=== PATIENT | female | born 1945 | race Caucasian/White ===

== ENCOUNTER 2018-12-20 06:51 | Inpatient (IN) ==
[2018-12-14 12:11] LABS: Appearance,Urine CLEAR; Bilirubin,Urine NEG (NEG); Color,Urine YELLOW; Glucose,Urine (UA) NORM (NEG); Leukocyte Esterase,Urine NEG /uL (NEG); Protein,Urine NEG (NEG); Specific Gravity,Urine 1.025 (1.000-1.035); Urine Blood NEG mg/dL (<0.03); Urobilinogen,Urine NORM (NEG)
[2018-12-14 12:21] LABS: Basophils # (Auto) 0 K/mcL (0.0-0.3); Basophils % (Auto) 0.4 % (0.0-2.0); Eosinophils # (Auto) 0.1 K/mcL (0.0-0.7); Eosinophils % (Auto) 1.4 % (0.0-7.0); Granulocytes % (Auto) 64.3 % (38.0-78.0); Lymphocytes # (Auto) 2.2 K/mcL (1.5-4.8); Lymphocytes % (Auto) 27.5 % (15.5-49.0); Mean Cell Volume 91.3 fL (80.0-100.0); Mean Corpuscular HGB Conc 32.6 g/dL (31.0-36.0); Monocytes # (Auto) 0.5 K/mcL (0.1-0.9); Monocytes % (Auto) 6.4 % (1.0-12.0); Platelet Count 226 K/mcL (140-440); RBC 4.89 M/mcL (4.00-5.20); Red Cell Distribution Width 13.2 % (11.5-14.5)
[2018-12-14 12:33] LABS: Blood Urea Nitrogen 12 mg/dl (8-23)
[2018-12-14 12:36] LABS: Estimated Average Glucose(eAG) 154 mg/dL
[~2018-12-20 06:51] MED LIST: SCOPOLAMINE 1 PATCH PATCH TOPICAL ONE
[2018-12-20] MEDS ORDERED: PREGABALIN 75 MG CAPSULE PO SCH (07:00)
[2018-12-20] MEDS ORDERED: ceFAZolin 1 GM VIAL IV SCH (07:00)
[2018-12-20] MEDS ORDERED: 0.9 % SODIUM CHLORIDE 9 ML, KETOROLAC 30 MG, ROPIVACAINE HCL/PF 49.5 ML, EPINEPHrine 0.... IJ SCH (07:00)
[2018-12-20] MEDS ORDERED: ACETAMINOPHEN 500 MG TABLET PO SCH (07:00)
[2018-12-20] MEDS: oxyCODONE 10 MG TAB.ER.12H PO SCH ×2 (07:43→08:18)
[2018-12-20] MEDS ORDERED: GENTAMICIN SULFATE 800 MG/20 ML VIAL IR ONE (08:09)
[2018-12-20] MEDS ORDERED: PROPOFOL 200 MG/20 ML VIAL IV ONE (09:00)
[2018-12-20] MEDS ORDERED: TRANEXAMIC ACID 1,000 MG/10 ML VIAL IV ONE ×2 (09:00→10:23)
[2018-12-20] MEDS ORDERED: DEXAMETHASONE 10 MG/ML VIAL IV ONE (09:00)
[2018-12-20] MEDS ORDERED: ROPIVACAINE HCL/PF 20 ML VIAL IJ ONE (09:00)
[2018-12-20] MEDS ORDERED: ONDANSETRON 4 MG/2 ML VIAL IV ONE (09:00)
[2018-12-20] MEDS ORDERED: LIDOCAINE HCL/PF 100 MG/5 ML SYRINGE IV ONE (09:00)
[2018-12-20] MEDS ORDERED: MIDAZOLAM 5 MG/5 ML VIAL IV ONE (09:00)
[2018-12-20] MEDS ORDERED: GLYCOPYRROLATE 0.2 MG/ML VIAL IV ONE (09:00)
[2018-12-20] MEDS ORDERED: FLUMAZENIL 0.1 MG/ML ML IV PRN (09:49)
[2018-12-20] MEDS ORDERED: HYDROmorphone 2 MG/ML VIAL IV PRN (09:49)
[2018-12-20] MEDS ORDERED: ePHEDrine 50 MG/ML AMPUL IV PRN (09:49)
[2018-12-20] MEDS ORDERED: METOPROLOL TARTRATE 5 MG/5 ML VIAL IV PRN (09:49)
[2018-12-20] MEDS ORDERED: PROMETHAZINE 25 MG/ML VIAL IV PRN (09:49)
[2018-12-20] MEDS ORDERED: ONDANSETRON 4 MG/2 ML VIAL IV PRN (09:49)
[2018-12-20] MEDS ORDERED: IPRATROPIUM/ALBUTEROL 3 ML AMPUL.NEB NEB PRN (09:49)
[2018-12-20] MEDS ORDERED: NALOXONE HCL 0.4 MG/ML VIAL IV PRN (09:49)
[2018-12-20] MEDS ORDERED: METHOCARBAMOL 1,000 MG/10 ML VIAL IV PRN (09:49)
[2018-12-20] MEDS ORDERED: ATROPINE SULFATE 0.4 MG/ML VIAL IV PRN (09:49)
[2018-12-20] MEDS ORDERED: LACTATED RINGERS 1,000 ML IV SCH (10:00)
[2018-12-20] MEDS ORDERED: POLYETHYLENE GLYCOL 3350 17 GM PACKET PO PRN (10:23)
[2018-12-20] MEDS ORDERED: BENZOCAINE/MENTHOL 1 LOZENGE PO PRN (10:23)
[2018-12-20] MEDS ORDERED: HYDROcodone/APAP 10/325MG TABLET PO PRN (10:23)
[2018-12-20] MEDS ORDERED: FLEETS ADULT ENEMA PR PRN (10:23)
[2018-12-20] MEDS ORDERED: BISACODYL 10 MG SUPP.RECT PR PRN (10:23)
[2018-12-20] MEDS ORDERED: MAGNESIUM HYDROXIDE 30 ML ORAL.SUSP PO PRN (10:23)
[2018-12-20] MEDS ORDERED: TEMAZEPAM 15 MG CAPSULE PO PRN (10:23)
--- NOTE | 2018-12-20 10:31 | Brief Operative Note ---
Date of procedure: 12/20/18 Pre-op diagnosis: right knee djd severe Post-op diagnosis: same Procedure: right robotic tka Grafts/Implants: Yes Anesthesia: GETA Complications: none Surgeon: Berhane Wilburn [employer] Manager: Uday Ventura Estimated blood loss (cc): 20 Tourniquet Time (Minutes): 50 Specimens Removed/Pathology: none sent Condition: stable Disposition: PACU
[2018-12-20] MEDS: fentaNYL 100 MCG/2 ML VIAL IV PRN ×3 (10:58→11:06)
--- NOTE | 2018-12-20 10:59 | Operative Note ---
DATE OF OPERATION: 12/20/2018 PREOPERATIVE DIAGNOSIS: Right knee degenerative arthritis, severe. POSTOPERATIVE DIAGNOSIS: Right knee degenerative arthritis, severe. PROCEDURE: Right robotic total knee arthroplasty. SURGEON: Berhane Wilburn M.D. RENDERER: Francisco Ventura PA-C. ANESTHESIA: General LMA anesthesia. TOURNIQUET TIME: 50 minutes. COMPLICATIONS: None. ESTIMATED BLOOD LOSS: About 20 mL. DESCRIPTION OF PROCEDURE: The patient was brought to the operating room and put to sleep with general LMA anesthesia. After being put to sleep with general LMA anesthesia, a timeout was performed. We confirmed the site as the right knee by consent form, x-rays, and initials on the skin. Once all this was accomplished, we made a midline incision through the [place]. A midvastus approach to the knee was performed. Severe arthritis throughout the knee was identified. With this, we proceeded with a total knee arthroplasty. Two pins above and below the knee were positioned, and the arrays were attached. We registered the center of hip rotation. Medial and lateral malleoli pins inside the femur and tibia were placed, and these were registered. We registered the robot and then balanced the knee, both at 90 and 15 degrees. Once perfectly balanced back to 0 degrees of varus valgus and 0 degrees extension, we then brought the robot in, made the bony cuts, and checked our alignment and tension. A 10 mm poly was best fit. The bony fragments had been removed. Osteophytes removed. We prepared the patella. It was measuring approximately 24 mm in total thickness. This was cut to 14 mm and then placed a 33 mm patellar button. All these components were cemented. We did place a 50 mm addition to the stem because the bone quality was very poor. The patient tolerated this well. We irrigated thoroughly after cementing the components. We let the knee dry at 45 degrees. Once dry, we then took the knee through range of motion to check that there was no debris or loose bodies within the joint. Once we thoroughly irrigated once more, we then closed the midvastus approach with #1 Stratafix. The tourniquet was deflated at 50 minutes. The tourniquet pressure was at 250 pounds of pressure only. Two Stratafix sutures closed the midvastus approach, 2-0 Vicryl and brijesh placed on the skin. The patient tolerated this well without complication. Sterile bandage was applied. [email or web address] Job ID: [id number] Doc ID: [id number] Berhane Wilburn MD
--- NOTE | 2018-12-20 11:19 | XRay Report ---
CLINICAL INFORMATION: Postsurgical follow-up TECHNIQUE: AP and crosstable lateral right knee COMPARISON: None. FINDINGS: Status post right total knee arthroplasty. Femoral and tibial components are in anatomic positions. Postsurgical soft tissue and intra-articular gas. There are skin brijesh anteriorly. IMPRESSION: Right total knee arthroplasty Interpreted and Authenticated by: Terrence Johnston 12/20/18
[2018-12-20] MEDS: HYDROmorphone 2 MG/ML VIAL IV PRN ×2 (11:30→19:29)
[2018-12-20] MEDS: 0.45 % SODIUM CHLORIDE 1,000 ML IV SCH ×2 (11:45→22:03)
[2018-12-20] MEDS: KETOROLAC 15 MG/ML VIAL IV SCH ×2 (12:26→18:07)
[2018-12-20] MEDS: INSULIN LISPRO 1 UNIT/0.01 ML UNIT SQ SCH ×2 (12:49→19:16)
[2018-12-20] MEDS: 0.9 % SODIUM CHLORIDE 10 ML SYRINGE IV SCH ×2 (13:45→22:06)
[2018-12-20] MEDS: ACETAMINOPHEN 325 MG TABLET PO PRN (15:44)
[2018-12-20] MEDS: ONDANSETRON 4 MG/2 ML VIAL IV PRN ×2 (15:49→19:46)
[2018-12-20] MEDS: ALPRAZolam 0.25 MG TABLET PO PRN (18:07)
[2018-12-20] MEDS: ceFAZolin 1 GM VIAL IV SCH (18:23)
[2018-12-20] MEDS ORDERED: ASPIRIN 325 MG ENTERIC COATED TABLET PO SCH (21:00)
[2018-12-20] MEDS ORDERED: SENNOSIDES 1 TABLET PO SCH (21:00)
[2018-12-20] MEDS ORDERED: DOCUSATE SODIUM 100 MG CAPSULE PO SCH (21:00)
[2018-12-20] MEDS ORDERED: INSULIN GLARGINE, HUMAN 1 UNIT/0.01 ML SQ SCH (21:00)
[2018-12-21] MEDS: KETOROLAC 15 MG/ML VIAL IV SCH ×2 (00:47→06:03)
[2018-12-21] MEDS: ceFAZolin 1 GM VIAL IV SCH (00:47)
[2018-12-21] MEDS: ALPRAZolam 0.25 MG TABLET PO PRN ×2 (00:48→07:36)
[2018-12-21] MEDS: ACETAMINOPHEN 325 MG TABLET PO PRN ×2 (00:48→07:36)
[2018-12-21] MEDS: 0.9 % SODIUM CHLORIDE 10 ML SYRINGE IV SCH (06:03)
[2018-12-21] MEDS ORDERED: INSULIN ASPART 100 UNIT/ML SC SCH (07:00)
[2018-12-21] MEDS ORDERED: INSULIN REGULAR, HUMAN 1 UNIT/0.01 ML UNIT SQ SCH (07:00)
[2018-12-21] MEDS: INSULIN LISPRO 1 UNIT/0.01 ML UNIT SQ SCH (07:29)
--- NOTE | 2018-12-21 08:10 | Discharge Summary ---
Ortho Discharge - TKA - Patient Instructions Diet: Regular Diet Activity: activity as tolerated, weight bearing as tolerated Total Knee Protocol: For Total Knee: Start ROM SOFIA with stationary bike or rocking chair. Work on gaining full extension of knee. Posterior dislocation precautions provided. Hip abductor strengthening and gait training instructions provided. Apply Cryocuff as instructed. Dressing Care: Aquacel Ag - leave on for 5 days - Follow Up Plan Follow Up Appointments: Oni Yousif PA-C [Physician Officer Captain] - 01/02/19 10:40 am Disposition: Hospice - Home Prognosis: Good Rehab Potential: Good I certify that the patient requires SNF services: No Overall status at discharge: patient is progressing back to baseline - Orders For Discharge Additional Discharge Orders: Physical Therapy at Discharge - TKA Location: None Selected Toilet Riser Discharge Order Location: None Selected Walker Location: None Selected
--- NOTE | 2018-12-21 08:19 | Discharge Summary ---
Ortho Discharge - TKA - Patient Instructions Diet: Regular Diet Activity: activity as tolerated, weight bearing as tolerated Total Knee Protocol: For Total Knee: Start ROM SOFIA with stationary bike or rocking chair. Work on gaining full extension of knee. Posterior dislocation precautions provided. Hip abductor strengthening and gait training instructions provided. Apply Cryocuff as instructed. - Follow Up Plan Follow Up Appointments: Oni Yousif PA-C [Physician Carpenter'S Assistant] - 01/02/19 10:40 am Disposition: Hospice - Home Prognosis: Good Rehab Potential: Good I certify that the patient requires SNF services: No - Orders For Discharge Prescriptions: Aspirin [Ecotrin] 325 mg PO DAILY #14 tab.ec oxyCODONE/APAP [Percocet 5-325 mg] 1 - 2 tab PO Q4H PRN #60 tab PRN Reason: Pain Additional Discharge Orders: Physical Therapy at Discharge - TKA Location: None Selected CPM Discharge Order Location: None Selected Toilet Riser Discharge Order Location: None Selected Walker Location: None Selected
[2018-12-21] MEDS: oxyCODONE/APAP 5/325MG TABLET PO PRN ×2 (08:28→12:27)
[2018-12-21] MEDS ORDERED: LISINOPRIL 20 MG TABLET PO SCH (09:00)
[2018-12-21] MEDS ORDERED: amLODIPine 10 MG TABLET PO SCH (09:00)
[2018-12-21] MEDS ORDERED: CALCIUM (OYSTER SHELL) 500 MG TABLET PO SCH (09:00)
[2018-12-21] MEDS ORDERED: VITAMIN D3 1,000 UNIT TABLET PO SCH (09:00)
== END 2018-12-21 12:50 | disposition hospice, home (50) | DRG 470 ==
LOC: MEDSUR 06:51
PROVIDERS: ADMIT Orthopaedic Surgery; ATTEND Orthopaedic Surgery